=== PATIENT | male | born 1990 | race Caucasian/White ===

== ENCOUNTER 2025-01-09 18:51 | Emergency (ER) | payer BC, SELFPAY ==
[2025-01-09 19:05] VITALS: BP 119/75; PULSE 96; RESP 16; TEMP 36.7; O2SAT 100
--- NOTE | 2025-01-09 19:09 | ED.SKABFB ---
HPI - Skin/Abscess/Foreign Bdy General Chief complaint: Skin/Abscess/Foreign Body Stated complaint: Rash/Bump On Right Leg Time Seen by Provider: 01/09/25 19:10 Source: patient Mode of arrival: ambulatory Limitations: no limitations History of Present Illness HPI narrative: Alex is a 34-year-old male patient presenting to the clinic today with complaints of a painful bump on his right anterior thigh. He reports he noticed this yesterday. Area is painful, erythemic, and hard. He states he tried to pop the area and there was no drainage. No fevers, chills, body aches at this time. No injury, no history of staph infection. No known insect bite. Related Data Allergies Allergy/AdvReac Type Severity Reaction Status Date / Time No Known Allergies Allergy Verified 01/09/25 19:11 Review of Systems Review of Systems: Pertinent positives per HPI. Patient denies any fever, chills, rash, headache, visual changes, dizziness, cough, shortness of breath, chest pain, palpitations, nausea, vomiting, diarrhea, constipation, abdominal pain, or any urinary issues. PMFSH Comments At the time of my signature, I reviewed and agree with the nursing past medical, surgical, social, and family history. There is no relevant family history pertinent to the patient complaint. Exam Narrative: General: Well-developed, well nourished, in no apparent distress Head: Normocephalic, atraumatic. Cardio: Regular rate and rhythm, s1 and s2 normal, no murmur appreciated. Resp: Clear to auscultation bilaterally, no rhonchi, rales, wheezing or rubs. Integumentary: [place], warm, and dry, firm, erythemic, tender, fluctuant area to the right anterior thigh measuring approximately 2 cm x 3 cm with surrounding redness measuring 12 cm x 14 cm Course Course Emergency Course: Portions of this record may have been created with voice recognition software. Level of Care: Express Care Visit Vital Signs Vital signs: Vital Signs Temperature 36.7 C 01/09/25 19:05 Pulse Rate 96 01/09/25 19:05 Respiratory Rate 16 01/09/25 19:05 Blood Pressure 119/75 01/09/25 19:05 Pulse Oximetry 100 01/09/25 19:05 Oxygen Delivery Room Air 01/09/25 19:05 Temperature 36.7 C 01/09/25 19:05 Pulse Rate 96 01/09/25 19:05 Respiratory Rate 16 01/09/25 19:05 Blood Pressure 119/75 01/09/25 19:05 Pulse Oximetry 100 01/09/25 19:05 Oxygen Delivery Room Air 01/09/25 19:05 Vital signs reviewed MDM - Skin/Abscess/Foreign Bdy MDM Narrative Medical decision making narrative: At the time of visit patient is resting comfortably on the exam table. Patient appears to be nontoxic. Plan: I suspect patient has an early abscess with localized cellulitis. Clindamycin was sent to the pharmacy. Area of erythema was marked with a skin marker and patient was instructed to go the emergency room if redness spreads outside the [place]. Supportive measures were discussed with the patient and they voiced understanding discharge instructions and agrees to treatment plan. Return precautions reviewed Differential Diagnosis Differential diagnosis: Likely abscess of skin or subcutaneous tissue, viral exanthem, dermatophytosis, urticaria, herpes zoster, allergic reaction to drug, cellulitis, eczema, insect bites, impetigo and contact dermatitis Discharge Plan Discharge Clinical Impression: Cellulitis Qualifiers: Site of cellulitis: extremity Site of cellulitis of extremity: lower extremity Laterality: right Qualified Code(s): L03.115 - Cellulitis of right lower limb Abscess of skin or subcutaneous tissue Qualifiers: Site of cutaneous abscess: extremity Site of cutaneous abscess of extremity: lower extremity Laterality: right Qualified Code(s): L02.415 - Cutaneous abscess of right lower limb Patient Disposition: Home Condition: Stable Instructions: Antibiotic Form, Cellulitis (ED) Additional Instructions: Increase fluids and stay well hydrated May take Tylenol/Motrin as needed for pain Take clindamycin as prescribed May take an [id number] probiotic daily-take this 2 hours before 2 hours after taking the antibiotic Keep covered if draining Keep area clean and dry Watch for signs and symptoms of worsening infection- redness, streaking, swelling, purulent discharge, or increase in pain. Follow up with your PCP in 2 days for wound check. Patient Language: Japanese Prescriptions: New clindamycin HCl [Cleocin HCl] 300 mg capsule 300 mg PO Q8H 10 Days Qty: 30 0RF Follow-up/Referrals: PHYSICIAN,DEGREASING WHEEL OPERATOR [Primary Care Provider] - Time of Disposition: 19:15 Quality NIHSS Nursing Documentation ED NIHSS nursing documentation: reviewed/agree
== END 2025-01-09 19:24 | disposition home or self-care (01) ==
PROVIDERS: Emergency Provider Nurse Practitioner Family
DX: L03.115 Cellulitis of right lower limb (principal); L02.415 Cutaneous abscess of right lower limb
CPT/HCPCS: 99203; G0463